=== PATIENT | male | born 2000 | race Caucasian/White ===

== ENCOUNTER 2021-02-07 06:51 | Emergency (ER) | payer MEDICAID ==
[~2021-02-07] VITALS: Ht 182.9 cm; Wt 84.0 kg
[2021-02-07 07:43] LABS: BASOPHILS % 0.6 % (0.0-2.0); HEMOGLOBIN. 14.9 g/dL (14.0-18.0); LYMPHOCYTES % 35.8 % (20.0-50.0); MEAN CORPUSCULAR HEMOGLOBIN 27.3 pg (28.0-32.0); MEAN CORPUSCULAR VOLUME 76.9 fL (80.0-94.0); MEAN PLATELET VOLUME 9.1 fl (7.4-10.4); MONOCYTES % 8.9 % (2.0-8.0); NEUTROPHILS % 53.7 % (40.0-76.0); PLATELET 150 x1000/uL (130-400); RED BLOOD CELL COUNT 5.46 mill/uL (4.7-6.1); RED CELL DISTRIBUTION WIDTH 13.5 % (11.6-14.6)
[2021-02-07 07:49] LABS: CHLORIDE 106 mEq/L (98-107)
[2021-02-07] MEDS ORDERED: IOHEXOL-300 100 ML BOTTLE ONE (10:11)
[2021-02-07 11:34] VITALS: BP 127/69
== END 2021-02-07 11:45 | disposition home or self-care (01) ==
LOC: ER 07:20
DX: R07.2 Precordial pain (principal); R03.0 Elevated blood-pressure reading, without diagnosis of hypertension
CPT/HCPCS: 36415; 71045; 71275; 80053; 83880; 84443; 84484; 85025; 93005; 99285; Q9967; Z7610

== ENCOUNTER 2023-11-12 06:15 | Emergency (ER) | payer SELFPAY ==
[~2023-11-12] VITALS: Ht 182.9 cm; Wt 68.0 kg
[2023-11-12 06:26] VITALS: O2SAT 99
[2023-11-12 10:39] VITALS: BP 124/74; PULSE 74; RESP 18; TEMP 97.3
== END 2023-11-12 10:46 | disposition home or self-care (01) ==
LOC: ER 06:26
DX: Z13.89 Encounter for screening for other disorder (principal); Z59.00 Homelessness unspecified
CPT/HCPCS: 99281